=== PATIENT | male | born 1995 | race Hispanic/Latino ===

== ENCOUNTER 2019-02-06 21:53 | Emergency (ER) | payer MEDICAID, OTHER ==
[2019-02-06 22:42] LABS: BASOPHILS % (AUTO) 0.6 % (0.0-5.0); EOSINOPHILS % (AUTO) 2.2 % (0.0-8.0); HEMATOCRIT 42.3 % (42-54); LYMPHOCYTES % (AUTO) 27.6 % (21.0-51.0); MEAN CORPUSCULAR HEMOGLOBIN 29.4 pg (27.0-33.0); MEAN CORPUSCULAR HGB CONC 33.7 g/dL (32.0-36.0); MEAN CORPUSCULAR VOLUME 87.1 fL (79-99); MONOCYTES % (AUTO) 5.9 % (3.0-13.0); NEUTROPHILS % (AUTO) 63.7 % (40.0-77.0); PLATELET COUNT (AUTO) 183 K/uL (130-400); RED BLOOD CELL COUNT(AUTO) 4.86 MIL/uL (4.50-6.20); RED CELL DISTRIBUTION WIDTH 13.7 % (11.0-15.5)
[2019-02-06 22:47] LABS: APPEARANCE,URINE Clear (CLEAR); BILIRUBIN,URINE Negative (NEGATIVE); COLOR,URINE Yellow (YELLOW); GLUCOSE, URINE (UA) Negative (NEGATIVE); KETONES,URINE Negative (NEGATIVE); LEUKOCYTE ESTERASE ,URINE Negative (NEGATIVE); NITRATE,URINE Negative (NEGATIVE); OCCULT BLOOD,URINE Negative (NEGATIVE); PH,URINE 6.5 (5.0-8.0); PROTEIN,URINE Negative (NEGATIVE)
[2019-02-06 22:52] LABS: INR 0.94 (0.85-1.15); PARTIAL THROMBOPLASTIN TIME 26.4 SEC (26.3-35.5); PROTHROMBIN TIME 9.9 SEC (9.6-11.6)
[2019-02-06] MEDS ORDERED: SODIUM CHLORIDE 0.9% 1000ML 2,000 ML IV ONE (22:53)
[2019-02-06 22:55] LABS: CREATININE 1.4 mg/dL (0.5-1.5); POTASSIUM 3.6 mmol/L (3.5-5.1)
[2019-02-06 22:55] LABS: AMPHET/METH SCREEN,URINE NEGATIVE (NEGATIVE); BARBITURATE SCREEN, URINE NEGATIVE (NEGATIVE); BENZODIAZEPINES SCREEN,URINE NEGATIVE (NEGATIVE); CANNABINOID SCREEN,URINE POSITIVE (NEGATIVE); COCAINE SCREEN,URINE NEGATIVE (NEGATIVE); OPIATE SCREEN,URINE NEGATIVE (NEGATIVE); PHENCYCLIDINE SCREEN,URINE NEGATIVE (NEGATIVE)
[2019-02-06 23:08] LABS: ALBUMIN 3.4 g/dL (3.5-5.0); BILIRUBIN,TOTAL 0.3 mg/dL (0.2-1.0); THYROID STIMULATING HORMONE 1.19 uIU/mL (0.36-3.74); TOTAL PROTEIN, SERUM 6.3 g/dL (6.0-8.3)
[2019-02-06 23:09] LABS: B-TYPE NATRIURETIC PEPTIDE < 5 pg/mL (0-100)
== END 2019-02-07 00:04 | disposition home or self-care (01) ==
LOC: EDH 21:53
DX: F43.0 Acute stress reaction (principal); R00.2 Palpitations; R42 Dizziness and giddiness; R51 Headache
CPT/HCPCS: 36415; 71045; 80053; 80305; 81003; 82550; 83605; 83880; 84443; 84484; 85025; 85610; 85730; 93005; 96360; 99285; J7030

== ENCOUNTER 2019-04-04 19:30 | Emergency (ER) | payer OTHER ==
[2019-04-04 19:55] LABS: APPEARANCE,URINE Clear (CLEAR); BILIRUBIN,URINE Negative (NEGATIVE); COLOR,URINE Yellow (YELLOW); GLUCOSE, URINE (UA) Negative (NEGATIVE); KETONES,URINE Negative (NEGATIVE); LEUKOCYTE ESTERASE ,URINE Negative (NEGATIVE); NITRATE,URINE Negative (NEGATIVE); OCCULT BLOOD,URINE Negative (NEGATIVE); PROTEIN,URINE Negative (NEGATIVE); UROBILINOGEN,URINE 0.2 mg/dL (0.2-1.0)
[2019-04-04 19:59] LABS: BASOPHILS % (AUTO) 0.2 % (0.0-5.0); EOSINOPHILS % (AUTO) 0.3 % (0.0-8.0); HEMATOCRIT 50.1 % (42-54); LYMPHOCYTES % (AUTO) 14.8 % (21.0-51.0); MEAN CORPUSCULAR HGB CONC 33.2 g/dL (32.0-36.0); MEAN CORPUSCULAR VOLUME 87.5 fL (79-99); MONOCYTES % (AUTO) 5.1 % (3.0-13.0); NEUTROPHILS % (AUTO) 79.6 % (40.0-77.0); PLATELET COUNT (AUTO) 167 K/uL (130-400); RED BLOOD CELL COUNT(AUTO) 5.73 MIL/uL (4.50-6.20); RED CELL DISTRIBUTION WIDTH 13.8 % (11.0-15.5); WHITE BLOOD COUNT (AUTO) 9.3 K/uL (4.8-10.8)
[2019-04-04 20:09] LABS: CREATININE 1.1 mg/dL (0.5-1.5); POTASSIUM 3.6 mmol/L (3.5-5.1)
[2019-04-04 20:13] LABS: BILIRUBIN,DIRECT 0.1 mg/dL (0.0-0.3); BILIRUBIN,TOTAL 0.4 mg/dL (0.2-1.0); TOTAL PROTEIN, SERUM 5.8 g/dL (6.0-8.3)
[2019-04-04] MEDS ORDERED: MECLIZINE HCL 25 MG TABLET ONE (20:39)
[2019-04-04 21:31] LABS: AMPHET/METH SCREEN,URINE NEGATIVE (NEGATIVE); BARBITURATE SCREEN, URINE NEGATIVE (NEGATIVE); BENZODIAZEPINES SCREEN,URINE NEGATIVE (NEGATIVE); CANNABINOID SCREEN,URINE NEGATIVE (NEGATIVE); COCAINE SCREEN,URINE NEGATIVE (NEGATIVE); OPIATE SCREEN,URINE NEGATIVE (NEGATIVE); PHENCYCLIDINE SCREEN,URINE NEGATIVE (NEGATIVE)
== END 2019-04-04 21:40 | disposition home or self-care (01) ==
LOC: EDH 19:30
DX: H81.10 Benign paroxysmal vertigo, unspecified ear (principal); G43.909 Migraine, unspecified, not intractable, without status migrainosus
CPT/HCPCS: 36415; 80048; 80076; 80305; 81003; 83690; 85025; 93005

== ENCOUNTER 2019-05-02 16:31 | Emergency (ER) | payer OTHER | END 2019-05-02 17:18 | disposition home or self-care (01) | LOC: EDH 16:31 | DX: M94.0 Chondrocostal junction syndrome [Tietze] (principal); R05 Cough; G43.909 Migraine, unspecified, not intractable, without status migrainosus ==

== ENCOUNTER 2019-08-31 18:40 | Emergency (ER) | payer SELFPAY ==
[2019-08-31] MEDS ORDERED: TETANUS/DIPHTHERIA TOXOID [ADULT] 0.5 ML VIAL IM ONE (19:28)
[2019-08-31] MEDS ORDERED: SODIUM CHLORIDE 0.9% 1000ML 1,000 ML IV ONE (20:17)
== END 2019-08-31 19:48 | disposition home or self-care (01) ==
LOC: EDH 18:40
DX: S01.01XA Laceration without foreign body of scalp, initial encounter (principal); X58.XXXA Exposure to other specified factors, initial encounter; Y93.89 Activity, other specified; Y92.89 Other specified places as the place of occurrence of the external cause; Y99.8 Other external cause status
CPT/HCPCS: 12032; 90471; 90714; 99284; J7030

== ENCOUNTER 2019-09-06 08:40 | Emergency (ER) | payer SELFPAY | END 2019-09-06 09:42 | disposition home or self-care (01) | LOC: EDH 08:40 | DX: S01.01XD Laceration without foreign body of scalp, subsequent encounter (principal); G43.909 Migraine, unspecified, not intractable, without status migrainosus; X58.XXXD Exposure to other specified factors, subsequent encounter | CPT/HCPCS: 99281 ==

== ENCOUNTER 2020-02-22 21:26 | Emergency (ER) | payer OTHER, SELFPAY ==
[2020-02-22] MEDS ORDERED: ACETAMINOPHEN EXTRA STRENGTH 500 MG TABLET ONE (23:57)
[2020-02-23 00:29] LABS: RAPID GROUP A STREP NEGATIVE (NEGATIVE)
== END 2020-02-23 00:39 | disposition home or self-care (01) ==
LOC: EDH 21:26
DX: J06.9 Acute upper respiratory infection, unspecified (principal); J02.9 Acute pharyngitis, unspecified; Z20.828 Contact with and (suspected) exposure to other viral communicable diseases; G43.909 Migraine, unspecified, not intractable, without status migrainosus; F41.9 Anxiety disorder, unspecified
CPT/HCPCS: 71045; 87804; 87880

== ENCOUNTER 2021-01-20 18:33 | Emergency (ER) | payer SELFPAY ==
[2021-01-20 19:56] LABS: APPEARANCE,URINE Clear (CLEAR); BILIRUBIN,URINE Negative (NEGATIVE); COLOR,URINE Yellow (YELLOW); GLUCOSE, URINE (UA) Negative (NEGATIVE); KETONES,URINE Negative (NEGATIVE); LEUKOCYTE ESTERASE ,URINE Negative (NEGATIVE); NITRATE,URINE Negative (NEGATIVE); OCCULT BLOOD,URINE Small (NEGATIVE); PH,URINE 5.5 (5.0-8.0); PROTEIN,URINE Negative (NEGATIVE); UROBILINOGEN,URINE 0.2 mg/dL (0.2-1.0)
[2021-01-20 20:23] LABS: BACTERIA,URINE None Seen /HPF (None Seen); SQUAMOUS EPITHELIAL CELL,UR None Seen /HPF (0-2); WBC,URINE None Seen /HPF (0-1)
[2021-01-20] MEDS ORDERED: PHENAZOPYRIDINE HCL 200 MG TABLET ONE (21:02)
[2021-01-22 20:08] LABS: CHLAMYDIA DNA N.A.AMPLIFY Negative (Negative)
== END 2021-01-20 21:38 | disposition home or self-care (01) ==
LOC: EDH 18:33
DX: R30.0 Dysuria (principal); R35.0 Frequency of micturition; F41.9 Anxiety disorder, unspecified; G43.909 Migraine, unspecified, not intractable, without status migrainosus
CPT/HCPCS: 81001; 87486; 87797

== ENCOUNTER 2021-03-05 01:53 | Emergency (ER) | payer SELFPAY ==
[~2021-03-05] VITALS: Ht 167.6 cm; Wt 117.9 kg
[2021-03-05] MEDS ORDERED: IBUPROFEN 600 MG TABLET ONE (03:39)
[2021-03-05 03:44] VITALS: BP 134/77
[2021-03-05] MEDS ORDERED: IBUPROFEN 600 MG TABLET PO ONE (04:00)
[2021-03-05] MEDS ORDERED: IBUP-2070 PO (04:08)
== END 2021-03-05 04:38 | disposition home or self-care (01) ==
LOC: EDH 01:53
DX: R07.89 Other chest pain (principal); R42 Dizziness and giddiness; R05 Cough
CPT/HCPCS: 71046

== ENCOUNTER 2021-05-14 20:15 | Emergency (ER) | payer OTHER, SELFPAY ==
[~2021-05-14] VITALS: Ht 165.1 cm; Wt 116.6 kg
[~2021-05-14 20:15] MED LIST: IBUP-2070 PO
[2021-05-14 20:41] VITALS: BP 156/78
[2021-05-14 21:10] LABS: APPEARANCE,URINE Clear (CLEAR); BILIRUBIN,URINE Negative (NEGATIVE); COLOR,URINE Yellow (YELLOW); GLUCOSE, URINE (UA) Negative (NEGATIVE); KETONES,URINE Negative (NEGATIVE); LEUKOCYTE ESTERASE ,URINE Negative (NEGATIVE); NITRATE,URINE Negative (NEGATIVE); OCCULT BLOOD,URINE Negative (NEGATIVE); PH,URINE 7.5 (5.0-8.0); PROTEIN,URINE Negative (NEGATIVE); UROBILINOGEN,URINE 0.2 mg/dL (0.2-1.0)
[2021-05-14 21:18] LABS: AMPHET/METH SCREEN,URINE NEGATIVE (NEGATIVE); BARBITURATE SCREEN, URINE NEGATIVE (NEGATIVE); BENZODIAZEPINES SCREEN,URINE NEGATIVE (NEGATIVE); CANNABINOID SCREEN,URINE NEGATIVE (NEGATIVE); COCAINE SCREEN,URINE NEGATIVE (NEGATIVE); OPIATE SCREEN,URINE NEGATIVE (NEGATIVE); PHENCYCLIDINE SCREEN,URINE NEGATIVE (NEGATIVE)
[2021-05-14 21:24] LABS: BASOPHILS % (AUTO) 0.6 % (0.0-5.0); EOSINOPHILS % (AUTO) 0.1 % (0.0-8.0); HEMATOCRIT 43.5 % (42-54); LYMPHOCYTES % (AUTO) 17.8 % (21.0-51.0); MEAN CORPUSCULAR HEMOGLOBIN 27.7 pg (27.0-33.0); MEAN CORPUSCULAR HGB CONC 33.1 g/dL (32.0-36.0); MEAN CORPUSCULAR VOLUME 83.7 fL (79-99); MONOCYTES % (AUTO) 6.6 % (3.0-13.0); PLATELET COUNT (AUTO) 299 K/uL (130-400); RED CELL DISTRIBUTION WIDTH 13.7 % (11.0-15.5)
[2021-05-14] MEDS ORDERED: LACTATED RINGERS 1000ML 2,000 ML IV ONE (21:30)
[2021-05-14 21:35] LABS: HEMOGLOBIN A1C 6.3 % (4.0-6.0)
[2021-05-14 21:36] LABS: PROTHROMBIN TIME 10.9 SEC (9.6-11.6)
[2021-05-14 21:37] LABS: PARTIAL THROMBOPLASTIN TIME 26.3 SEC (26.3-35.5)
[2021-05-14 21:47] LABS: ALBUMIN 3.8 g/dL (3.5-5.0); BILIRUBIN,TOTAL 0.3 mg/dL (0.2-1.0)
[2021-05-14 22:51] VITALS: BP 150/84
[2021-05-15 01:14] VITALS: BP 128/70
== END 2021-05-15 01:49 | disposition home or self-care (01) ==
LOC: EDH 20:15
DX: R35.8 Other polyuria (principal); R63.1 Polydipsia; E86.0 Dehydration; F41.9 Anxiety disorder, unspecified; Z20.822 Contact with and (suspected) exposure to COVID-19; Z79.899 Other long term (current) drug therapy; Z98.890 Other specified postprocedural states
CPT/HCPCS: 36415; 80053; 80305; 81003; 82550; 82948; 83036; 83874; 84484; 85025; 85610; 85730; 87635; 93005; 96360; 96361; 99284; C9803; J7120

== ENCOUNTER 2021-05-22 14:14 | Emergency (ER) | payer OTHER, SELFPAY ==
[~2021-05-22] VITALS: Ht 165.1 cm; Wt 113.4 kg
[2021-05-22] MEDS ORDERED: MELA1TAB21 PO (16:09)
[2021-05-22 16:27] VITALS: BP 142/78
== END 2021-05-22 16:28 | disposition home or self-care (01) ==
LOC: EDH 14:14
DX: F41.9 Anxiety disorder, unspecified (principal); G47.00 Insomnia, unspecified; Z79.1 Long term (current) use of non-steroidal anti-inflammatories (NSAID)
CPT/HCPCS: 99282

== ENCOUNTER 2021-06-05 09:26 | Emergency (ER) | payer SELFPAY ==
[~2021-06-05] VITALS: Ht 167.6 cm; Wt 112.9 kg
[~2021-06-05 09:26] MED LIST changes: +MELA1TAB21 PO
[2021-06-05] MEDS ORDERED: FAMOTIDINE 20MG TAB PO SCH (10:00)
[2021-06-05 10:10] LABS: APPEARANCE,URINE Clear (CLEAR); BILIRUBIN,URINE Negative (NEGATIVE); COLOR,URINE Yellow (YELLOW); GLUCOSE, URINE (UA) Negative (NEGATIVE); KETONES,URINE Negative (NEGATIVE); LEUKOCYTE ESTERASE ,URINE Negative (NEGATIVE); NITRATE,URINE Negative (NEGATIVE); OCCULT BLOOD,URINE Negative (NEGATIVE); PROTEIN,URINE Negative (NEGATIVE); UROBILINOGEN,URINE 0.2 mg/dL (0.2-1.0)
[2021-06-05 10:18] LABS: AMPHET/METH SCREEN,URINE NEGATIVE (NEGATIVE); BARBITURATE SCREEN, URINE NEGATIVE (NEGATIVE); BENZODIAZEPINES SCREEN,URINE NEGATIVE (NEGATIVE); CANNABINOID SCREEN,URINE NEGATIVE (NEGATIVE); COCAINE SCREEN,URINE NEGATIVE (NEGATIVE); OPIATE SCREEN,URINE NEGATIVE (NEGATIVE); PHENCYCLIDINE SCREEN,URINE NEGATIVE (NEGATIVE)
[2021-06-05 10:21] LABS: BILIRUBIN,TOTAL 0.3 mg/dL (0.2-1.0); TOTAL PROTEIN, SERUM 8.1 g/dL (6.0-8.3)
[2021-06-05 10:22] LABS: BASOPHILS % (AUTO) 0.5 % (0.0-5.0); EOSINOPHILS % (AUTO) 0.8 % (0.0-8.0); LYMPHOCYTES % (AUTO) 24.6 % (21.0-51.0); MEAN CORPUSCULAR HEMOGLOBIN 27.5 pg (27.0-33.0); MEAN CORPUSCULAR HGB CONC 32.8 g/dL (32.0-36.0); MEAN CORPUSCULAR VOLUME 83.6 fL (79-99); MONOCYTES % (AUTO) 7.8 % (3.0-13.0); NEUTROPHILS % (AUTO) 65.5 % (40.0-77.0); PLATELET COUNT (AUTO) 212 K/uL (130-400); RED CELL DISTRIBUTION WIDTH 13.9 % (11.0-15.5); WHITE BLOOD COUNT (AUTO) 6.4 K/uL (4.8-10.8)
[2021-06-05 10:27] VITALS: BP 155/88
[2021-06-05] MEDS ORDERED: METOCLOPRAMIDE 10 MG TABLET ONE (10:52)
[2021-06-05] MEDS ORDERED: METOCLOPRAMIDE 10 MG TABLET PO SCH (11:00)
[2021-06-05] MEDS ORDERED: METO10TA41 PO (11:15)
[2021-06-05] MEDS ORDERED: FAMO-136 PO (11:15)
== END 2021-06-05 11:41 | disposition home or self-care (01) ==
LOC: EDH 09:26
DX: R10.13 Epigastric pain (principal); F41.9 Anxiety disorder, unspecified; R73.9 Hyperglycemia, unspecified; R03.0 Elevated blood-pressure reading, without diagnosis of hypertension; Z79.1 Long term (current) use of non-steroidal anti-inflammatories (NSAID); Z79.899 Other long term (current) drug therapy
CPT/HCPCS: 36415; 71046; 80053; 80305; 81003; 82550; 83690; 84484; 85025; 93005

== ENCOUNTER 2024-04-16 00:02 | Emergency (ER) | payer SELFPAY ==
[~2024-04-16] VITALS: Ht 165.1 cm; Wt 103.1 kg
[~2024-04-16 00:02] MED LIST changes: +FAMO-136 PO; -MELA1TAB21 PO; +MELA1TAB73 PO; +METO10TA41 PO
[2024-04-16 00:36] LABS: RAPID GROUP A STREP negative (NEGATIVE)
[2024-04-16 00:43] LABS: INFLUENZA TYPE A Negative For Type A (NEGATIVE); INFLUENZA TYPE B Negative For Type B (NEGATIVE)
[2024-04-16 00:45] LABS: SARS-CoV-2, RNA, NAAT NEGATIVE SARS CoV-2 (NEGATIVE)
[2024-04-16 02:05] LABS: AMPHET/METH SCREEN,URINE NEGATIVE (NEGATIVE); BARBITURATE SCREEN, URINE NEGATIVE (NEGATIVE); BENZODIAZEPINES SCREEN,URINE NEGATIVE (NEGATIVE); CANNABINOID SCREEN,URINE NEGATIVE (NEGATIVE); COCAINE SCREEN,URINE NEGATIVE (NEGATIVE); OPIATE SCREEN,URINE NEGATIVE (NEGATIVE); PHENCYCLIDINE SCREEN,URINE NEGATIVE (NEGATIVE)
[2024-04-16] MEDS: SOLU-MEDROL 125MG VIAL IM ONE (02:10)
[2024-04-16] MEDS: GUAIFENESIN-DM 200/20 MG 10 ML PO ONE (02:10)
[2024-04-16] MEDS ORDERED: BENZ-39 PO (03:09)
[2024-04-16] MEDS ORDERED: AZIT250T9 PO (03:09)
[2024-04-16] MEDS ORDERED: PRED20TA3 PO (03:09)
[2024-04-16 03:23] VITALS: BP 136/82; PULSE 86; RESP 18; O2SAT 100
== END 2024-04-16 03:25 | disposition home or self-care (01) ==
LOC: EDH 00:02
DX: J20.9 Acute bronchitis, unspecified (principal); Z20.822 Contact with and (suspected) exposure to COVID-19; F41.9 Anxiety disorder, unspecified; R03.0 Elevated blood-pressure reading, without diagnosis of hypertension; R05.9 Cough, unspecified; Z98.890 Other specified postprocedural states
CPT/HCPCS: 99284; 71045; 87635; 80305; 87880; 87804 ×2; 96372; J2919